=== PATIENT | male | born 1965 | race Caucasian/White ===

== ENCOUNTER 2020-06-23 04:36 | Day surgery (SDC) | payer OTHER ==
[2020-06-19 13:14] VITALS: BMI 27.9
[2020-06-23 13:11] VITALS: BP 116/79; PULSE 62; TEMP 97.9
== END 2020-06-23 13:05 | disposition home or self-care (01) ==
LOC: JRADIR 04:36
PROVIDERS: ATTEND Neurological Surgery
PROC: B01BYZZ Fluoroscopy of Spinal Cord using Other Contrast (ICD-10-PCS; principal; 2020-06-23)
DX: M54.9 Dorsalgia, unspecified (principal)
CPT/HCPCS: 62305; 72131-TC; 72265-TC-FY

== ENCOUNTER 2020-06-26 11:50 | Emergency (ER) | payer OTHER ==
[2020-06-26 12:12] VITALS: BP 112/72; PULSE 87; BMI 27.3
[2020-06-26] MEDS ORDERED: KETOROLAC TROMETHAMINE 30 MG/1 ML VIAL IM ONE (13:25)
[2020-06-26] MEDS ORDERED: KETOROLAC TROMETHAMINE 30 MG/1 ML VIAL ONE (13:32)
== END 2020-06-26 13:44 | disposition home or self-care (01) ==
LOC: JERFT 11:50
PROC: 3E0233Z Introduction of Anti-inflammatory into Muscle, Percutaneous Approach (ICD-10-PCS; principal; 2020-06-26)
DX: M62.838 Other muscle spasm (principal)
CPT/HCPCS: 99284-25

== ENCOUNTER 2023-10-24 04:40 | Day surgery (SDC) | payer BC, OTHER ==
[2023-10-17 13:11] VITALS: BMI 27.6
[2023-10-24 10:57] VITALS: TEMP 97.7
[2023-10-24 11:23] VITALS: BP 116/80; PULSE 62; RESP 17
== END 2023-10-24 11:27 | disposition home or self-care (01) ==
LOC: JASU-ENDO 04:40
PROVIDERS: ATTEND Internal Medicine Gastroenterology
PROC: 0DJD8ZZ Inspection of Lower Intestinal Tract, Via Natural or Artificial Opening Endoscopic (ICD-10-PCS; principal; 2023-10-24 11:00)
DX: Z12.11 Encounter for screening for malignant neoplasm of colon (principal)